=== PATIENT | male | born 1945 | race Caucasian/White ===

== ENCOUNTER → 2016-12-16 | Outpatient (CLI) | payer MEDICARE, OTHER ==
[~2016-12-16] MED LIST: ALDACTONE25 MG PO; ASPIRIN LO-DOSE81 MG PO; AVAPRO150 MG PO; COMPAZINE10 MG PO; FEOSOL325 MG PO; FOLIC ACID 40400 MCG PO; LASIX20 MG PO; LIPITOR40 MG PO; LOPRESSOR25 MG PO; LYSINE1000 MG PO; TIMOPTIC 0.5%15 ML OPHTH; TYLENOL EXTRA500 MG PO
== END | disposition disaster alternative care site (69) ==
LOC: GRAD 11:34
DX: C65.1 Malignant neoplasm of right renal pelvis (principal); N17.9 Acute kidney failure, unspecified; D64.81 Anemia due to antineoplastic chemotherapy; D70.1 Agranulocytosis secondary to cancer chemotherapy; Q61.02 Congenital multiple renal cysts; E27.8 Other specified disorders of adrenal gland; I51.7 Cardiomegaly; R91.8 Other nonspecific abnormal finding of lung field
CPT/HCPCS: Q9967

== ENCOUNTER → 2017-02-21 | Outpatient (CLI) | payer MEDICARE, OTHER | END | disposition disaster alternative care site (69) | LOC: GOPD 02-16 | DX: C65.1 Malignant neoplasm of right renal pelvis (principal); N17.9 Acute kidney failure, unspecified; D70.1 Agranulocytosis secondary to cancer chemotherapy; D64.81 Anemia due to antineoplastic chemotherapy; J90 Pleural effusion, not elsewhere classified; E27.8 Other specified disorders of adrenal gland; M89.9 Disorder of bone, unspecified; R91.8 Other nonspecific abnormal finding of lung field | CPT/HCPCS: J2001; J7030; Q9967 ==

== ENCOUNTER 2017-03-19 09:17 | Inpatient (IN) | payer MEDICARE, OTHER ==
[~2017-03-19] VITALS: Ht 180.3 cm; Wt 78.2 kg
--- NOTE | ~2017-03-19 | CON ---
PATIENT'S NAME: ANTONIO ROJO [facility] AGE: 71 Y [address] ROOM: [id number] [place], [place] [address] [place] [facility]: 03/19/2017 Consultation DISCHARGE DATE: FAMILY PHYSICIAN: Mahendra Mora MD ATTENDING PHYSICIAN: Carlin Stanford REFERRING PHYSICIAN: Romario Zuniga MD REASON FOR CONSULTATION: Ventricular tachycardia. HISTORY OF PRESENT ILLNESS: This is a 71-year-old gentleman with a history of coronary artery disease and CABG as well as sudden cardiac in 1991. He was post ICD implantation, and has four generator exchanges. He had problems with one of the ICD leads, so the ICD was shut off. He does see Dr. Olsen, and states that because he has not had any shock therapy, they were going to wait to do any kind of replacement of his leads on his ICD. He has not had any problems with exertional chest pain unless he exerts fairly heavily. He denies shortness of breath, orthopnea, or PND. He did have some problems with edema, but he was placed on a diuretic and it has since subsided. He has not followed up with Dr. Olsen for a little while as he was diagnosed with renal carcinoma with metastases. He does have a spot on his liver, but told that the cancer had been fairly stable with his chemo. He follows along with Dr. Salinas. The patient reports that approximately two years ago, he was told that his EF was around 50%. Mr. Rojo is now admitted with complaints of abdominal discomfort in the inguinal area. He had been moving a refrigerator and did a lot of straining, and he noticed that his previous inguinal hernia had gotten larger. He went to the Emergency Room for evaluation, and the CT revealed partial obstruction, but they were able to reduce it, and he went home. He re-presented to the hospital with complaints of left groin and abdominal pain with nausea and unreducible inguinal hernia. Therefore, he was taken to surgery urgently for a hernia repair and a partial colon resection. ALLERGIES: TO TETANUS VACCINES AND TOXOID. HOME MEDICATIONS: 1. Aspirin 81 mg daily. 2. Atorvastatin 40 mg daily. 3. Ferrous sulfate 325 mg daily. 4. Folic acid 400 mcg daily. 5. Lasix 20 mg b.i.d. 6. Lysine 1000 mg p.o. every day. 7. Metoprolol tartrate 25 mg tablets, he takes two 25s in the morning. PATIENT'S NAME: ANTONIO ROJO [facility] AGE: 71 Y [address] ROOM: [id number] [place], [place] [address] [place] [facility] [place]: 03/19/2017 Consultation DISCHARGE DATE: FAMILY PHYSICIAN: Mahendra Mora MD ATTENDING PHYSICIAN: Carlin Stanford 8. Compazine 10 mg every six to eight hours. 9. Aldactone 25 mg b.i.d. 10. Timoptic 0.5% one drop ophthalmic every day. REVIEW OF SYSTEMS: HEAD: No history of headache. EYES: He wears corrective lenses. He denies vision changes. NOSE: No epistaxis or rhinorrhea. MOUTH: No gingival bleeding. THROAT: He denies sore throat, hoarseness, or difficulty swallowing. PULMONARY: No cough or hemoptysis. No orthopnea or PND. GASTROINTESTINAL: Per HPI. GENITOURINARY: Negative for urinary frequency. He does have renal cell carcinoma. He has nocturia at times. MUSCULOSKELETAL: No complaints of arthralgias or myalgias. NEUROLOGIC: No neuropathy. ENDOCRINE: No history of diabetes mellitus. No hyper or hypothyroidism. PHYSICAL EXAMINATION: VITAL SIGNS: His blood pressure is 111/62 to 129/58, heart rate is 62, temperature is 98.2, and O2 saturations are 94% on room air. His weight is 78.2 kg and height is 5 feet 11 inches. GENERAL: He is alert and oriented. He answers questions appropriately. His symmetrical facial expressions were noted. RESPIRATORY: Lung sounds are clear anteriorly and posteriorly. CARDIOVASCULAR: Regular with a normal S1 and S2. ABDOMEN: Soft. Bowel sounds are present. JVD is flat. No carotid bruits were noted. EXTREMITIES: Showed no peripheral edema now. LABORATORY DATA: BUN is 36, creatinine is 1.2, sodium is 141, and potassium is 4.4. Hemoglobin was 10.3, white count was 7.1, and ESR was 89. ASSESSMENT AND PLAN: Ventricular tachycardia. I did review the rhythms noted on telemetry. It certainly could be a slow ventricular tachycardia versus possible paced rhythm, although I am unable to see any pacemaker spikes. I will re-check his labs including magnesium and replace as necessary. The assessment and plan, history of present illness, and physical exam are per Dr. Zuniga. We would like to thank Dr. Nhung To for allowing us to participate in this patient's care. PATIENT'S NAME: ANTONIO ROJO [facility] AGE: 71 Y [address] ROOM: [place] [address] [place] [facility] [place]: 03/19/2017 Consultation DISCHARGE DATE: FAMILY PHYSICIAN: Mahendra Mora MD ATTENDING PHYSICIAN: Carlin Stanford CRISTA GIBBS APRN FOR ROMARIO ZUNIGA MD TGP/modl /[id number] d: 03/21/17 0006 t: 03/31/17 0903, CONSULTATION REPORT
--- NOTE | ~2017-03-19 | DS ---
PATIENT'S NAME: ANTONIO ROJO [facility] AGE: 71 Y [address] ROOM: [address] [place], [place] [address] [place] [facility] [place]: 03/19/2017 Discharge Summary DISCHARGE DATE: 03/22/2017 FAMILY PHYSICIAN: Mahendra Mora MD ATTENDING PHYSICIAN: Carlin Stanford DIAGNOSIS: Strangulated left inguinal hernia. PROCEDURE PERFORMED: Left inguinal hernia repair with biologic mesh with small-bowel resection. SUMMARY: Mr. Rojo is a 71-year-old gentleman, who was admitted to [facility] on March 19, 2017, after he presented with left groin pain. The patient stated that he had moved a refrigerator a couple of days prior to admission. With this, he did a lot of straining and then the day prior to admission, noticed that his inguinal hernia had gotten much larger in size. He had never had any problems with the hernia prior. Due to increased size and discomfort, the patient presented to the emergency room on March 18. He had a CT scan that revealed evidence of a partial obstruction. However, it was felt that this hernia was able to be partially reduced. The patient apparently had less symptoms and was able to be discharged home and re- presented again on March 19 with increasing discomfort in the left groin and abdomen with nausea. His hernia was not able to be reduced. The patient was evaluated by Dr. Stanford and was diagnosed with an incarcerated left inguinal hernia. He recommended proceeding to the operating room for repair of the hernia. Risks, benefits, and alternatives were discussed. The patient proceeded to the operating room on March 19, where he was found to have ischemic small bowel within the hernia. The small bowel was resected. The hernia was then repaired with the suture repair with the conjoint tendon being brought down to the inguinal ligament. The second layer of silk suture was also used. There was concern due to his recent chemotherapy the risk for recurrence and with minimal contamination, an AlloDerm patch was placed on the floor of the canal. Please see Dr. Stanford's procedure note for more specifics. Postoperatively, urine output was monitored closely. Incentive spirometer was ordered for pulmonary toiletry. Telemetry was ordered. He was kept n.p.o., Lovenox was ordered for DVT prophylaxis. The patient receive Mefoxin preoperatively and was continued postoperatively for 18 hours. IV acetaminophen and morphine were ordered for pain control along with Dufur. On postop day #1, the patient was doing okay with minimal pain. He was started on clear liquid diet, and IV acetaminophen was switched to oral. Cardiology was consulted due to V-tach. On postop day #2, the patient was passing flatus, had minimal pain, no nausea or vomiting. He was advanced to full liquids and advanced as tolerated. On postop day #3, he was doing well, tolerating p.o. intake, and arrangements were made for the patient to discharge home. PATIENT'S NAME: ANTONIO ROJO [facility] AGE: 71 Y [address] ROOM: [place] [address] [place] [facility] [place]: 03/19/2017 Discharge Summary DISCHARGE DATE: 03/22/2017 FAMILY PHYSICIAN: Mahendra Mora MD ATTENDING PHYSICIAN: Carlin Stanford DISCHARGE INSTRUCTIONS: Include diet as tolerated. No heavy lifting. He will follow up with Dr. Stanford in 1-2 weeks. DISCHARGE MEDICATIONS: Include resuming home medicine of: 1. Lasix 20 mg p.o. daily. 2. Lopressor 50 mg p.o. daily. 3. Aldactone 25 mg p.o. twice daily. 4. Timoptic 1 drop ophthalmic daily. 5. Lipitor 40 mg p.o. daily. 6. Aspirin 81 mg p.o. daily. 7. Folic acid 800 mcg p.o. daily. 8. Lysine 1000 mg p.o. daily. 9. Compazine 10 mg p.o. q.6-8 hours p.r.n. nausea. 10. Feosol 325 mg p.o. daily. 11. Tylenol for pain. For specifics on day-to-day care, please refer to the hospital chart. ANGÉLICA CANADA PA-C FOR MD NUNU PARKS/dana /[id number] d: 03/28/17 0342 t: 04/06/17 1944, DISCHARGE SUMMARY
--- NOTE | ~2017-03-19 | OR ---
PATIENT'S NAME: ANTONIO ROJO [facility] AGE: 71 Y [address] ROOM: [place] [id number] [place]: [facility] [place] DATE: 03/19/2017 OR/Procedure Report DISCHARGE DATE: FAMILY PHYSICIAN: Mahendra Mora MD ATTENDING PHYSICIAN: Carlin Stanford SURGEON: Carlin Stanford MD CONCRETE HOPPER OPERATOR: DATE OF PROCEDURE: 03/19/2017 PREOPERATIVE DIAGNOSIS: Incarcerated left inguinal hernia. POSTOPERATIVE DIAGNOSES: 1. Incarcerated left inguinal hernia. 2. Ischemic small bowel. PROCEDURE: 1. Left inguinal hernia repair with biologic mesh. 2. Small bowel resection. FINDINGS: The patient had an area of bowel that was ischemic that was both a direct and indirect component. ESTIMATED BLOOD LOSS: 75 mL. COMPLICATIONS: None. INDICATIONS: The patient is a 71-year-old male who presented with a bulge in his left groin and this was tender and tight with evidence of obstruction. We discussed potential findings with the patient hernia repair as well as potential for small bowel resection. He understood the risks and elected to proceed. DESCRIPTION OF PROCEDURE: The patient was taken to the operating room, was placed supine, given IV sedation, and subsequently intubated. His abdomen and groin were prepped with ChloraPrep and sterilely draped. An incision was created overlying the inguinal canal and carried through the subcutaneous tissues and Dickson's fascia using electrocautery. The aponeurosis external oblique was identified and this was incised sharply through the external ring. The hernia sac was visible. This was a very tense tight area and it was quite large. This was a very thickened chronic hernia sac. We opened the sac, there was dark fluid present, the bowel was examined, and it did appear to be ischemic. We were unable to bring more bowel through the defect or advance or this was incarcerated and strangulated. This appeared to be extending through a direct defect. We opened the size of this defect using electrocautery. We were able to deliver the bowel through the incision. We examined the bowel PATIENT'S NAME: ANTONIO ROJO [facility] AGE: 71 Y [address] ROOM: [address] [address] LOCATION: [facility] [place] DATE: 03/19/2017 OR/Procedure Report DISCHARGE DATE: FAMILY PHYSICIAN: Mahendra Mora MD ATTENDING PHYSICIAN: Carlin Stanford for sometime. The majority of this appeared to be vascularized; however, there was a very small area that did not improve; and because of this, we elected to perform a segmental small bowel resection, proximal and distal sites were selected, mesenteric windows were created. The bowel mesentery was divided between clamps and tied with 2-0 silk suture. REN stapler was placed across both the proximal and distal ends with separate staple loads, these were fired, the portion of small bowel was removed and was passed off the table as specimen. The 2 ends of the bowel were then brought together in a [id number] fashion. Enterotomies were created and REN stapler was inserted and fired creating a common lumen. A TA stapler was placed across the enterotomies to close these. The bowel was inspected and it was allowed to fall back into the abdominal cavity. We examined the rest of the cord and there was a moderate-sized indirect defect as well. The hernia sac was dissected around circumferentially and this was reduced. Between the 2 defects, these were quite large. The fascial edges were defined. We began with a suture repair, conjoined tendon was brought down to the inguinal ligament using interrupted silk suture. A second layer of interrupted silk suture was also used. This effectively closed the defects; however, with his need for chemotherapy in the near future and the size of the defects, I was concerned about recurrence. There was really minimal contamination, but again with his likely need for chemotherapy and increased risk of infection with the bowel resection, we decided to reinforce this with an AlloDerm patch, this was placed on the floor of the canal, secured to the inguinal ligament using 2-0 Vicryl suture. This was secured anteriorly and medially to the conjoined tendon using 3-0 Vicryl sutures. The tail of the mesh were loosely approximated around the cord. The operative field was inspected and it appeared hemostatic. The aponeurosis external oblique was reapproximated using 3-0 Vicryl suture and closure of Dickson's fascia with 3-0 Vicryl suture and skin closed with 4-0 Monocryl suture. Steri-Strips and sterile dressings were placed. The local anesthetic was infiltrated and the patient was extubated and sent to recovery in good condition. CARLIN J MD NHAN STANFORD/dana /[id number] d: 03/19/17 2328 t: 03/23/17 1739, OPERATIVE SUMMARY
--- NOTE | ~2017-03-19 | HP ---
PATIENT'S NAME: ANTONIO ROJO [facility] AGE: 71 Y [address] ROOM: [place] [address] [place] [facility] [place]: 03/19/2017 History & Physical DISCHARGE DATE: FAMILY PHYSICIAN: Mahendra Mora MD ATTENDING PHYSICIAN: Carlin Stanford CORRECTED COPY / Acct no / 03-21-17/ kld DATE OF SERVICE: CHIEF COMPLAINT: Left groin pain. HISTORY OF PRESENT ILLNESS: The patient is a 71-year-old male, who said he had moved a refrigerator a couple days ago. Did a lot of straining, then yesterday he had noticed throughout the day that his inguinal hernia had gotten much larger. He had known about this hernia for several years but never had any problems with this. Because of it getting larger and discomfort, he came to the emergency room last night where he was evaluated. He had a CT scan that revealed evidence of partial obstruction; however, it was felt that this hernia was able to be partially reduced. The patient apparently had less symptoms and was able to be discharged home and represented again today with increasing discomfort in his left groin and abdomen with nausea and his hernia was found to be unable to be reduced. The patient does have a history of previous right inguinal hernia. He also has stage 4 kidney disease, had been on chemotherapy. He has not been on chemo for nearly one month. He has coronary artery disease, has had previous cardiac bypass surgery. He says his last ejection fraction was approximately 2 years ago, was thought to be 50%. CURRENT MEDICATIONS: Include, 1. Metoprolol. 2. Lipitor. 3. Furosemide. 4. Spironolactone. 5. Aspirin. 6. Folic acid. 7. Iron. 8. Lysine eyedrops. PAST SURGICAL HISTORY: Coronary bypass pacer defibrillator x2, right inguinal hernia, eye surgery x3. CURRENT ILLNESSES: Coronary artery disease, stage 4 kidney disease. PATIENT'S NAME: ANTONIO ROJO [facility] AGE: 71 Y [address] ROOM: [place] [address] [place] [facility] [place]: 03/19/2017 History & Physical DISCHARGE DATE: FAMILY PHYSICIAN: Mahendra Mora MD ATTENDING PHYSICIAN: Carlin Stanford REVIEW OF SYSTEMS: He denies headache or vision changes. Denies shortness of breath. No chest pain. No melena. No hematochezia. No hematuria or dysuria. His last bowel movement was yesterday and he does not feel constipated. He denies any neurologic disorder. No diabetes, hyper or hypothyroidism. PHYSICAL EXAMINATION: GENERAL: Pleasant, cooperative 71-year-old male in no acute distress. HEENT: Head is normocephalic. Eyes are anicteric. NECK: Without lymphadenopathy. HEART: Regular rate and rhythm. LUNGS: Clear to auscultation bilaterally. ABDOMEN: Soft. There is mild distention. Bowel sounds are positive. He has a very dense scar overlying the transverse incision where he had his initial pacer. : He has a right inguinal scar that is well healed. No evidence of right inguinal hernia. There is an incarcerated left inguinal hernia. No overlying skin redness, but again this is not reducible. He has an uncircumcised phallus. EXTREMITIES: Warm. No edema. NEUROLOGICALLY: Gross motor is intact. ASSESSMENT: Incarcerated left inguinal hernia. PLAN: Discussed the findings. I feel the patient does have an incarcerated hernia causing obstructive type symptoms and I think this needs repair. I did discuss with him the possibility of this being more of a chronic hernia and other etiologies of his obstruction; however, this looks to be most probable source. We discussed repair with him. Risks of repair which include bleeding, infection, need for bowel resection, use of mesh, complications with bowel resection. We discussed neural and vascular injury, need for repeat operations or even intraabdominal operations. He understands the risks and would like to proceed. We will provide IV antibiotics and proceed to the operating room. MD NHAN PARKS/dana PATIENT'S NAME: ANTONIO ROJO [facility] AGE: 71 Y [address] ROOM: [place] [address] LOCATION: [facility] ADMIT DATE: 03/19/2017 History & Physical DISCHARGE DATE: FAMILY PHYSICIAN: Mahendra Mora MD ATTENDING PHYSICIAN: Carlin Stanford /[id number] CORRECTED COPY / Acct no / 7-11-/ kld D: 815 T: 742 HISTORY & PHYSICAL
--- NOTE | ~2017-03-19 | ER ---
PATIENT'S NAME: [facility] AGE: 71 Y [address] ROOM: [place] [address] [place] [facility] [place]: 03/19/2017 ER/Outpatient Report DISCHARGE DATE: FAMILY PHYSICIAN: Mahendra Mora MD ATTENDING PHYSICIAN: Carlin Stanford Time of Arrival: 0917 hours. Time of Evaluation: 0917 hours. CHIEF COMPLAINT: Abdominal pain. HISTORY OF PRESENT ILLNESS: The patient is a 71-year-old male who presents to the emergency department today with chief complaint of abdominal pain. The patient was seen the night before with some abdominal pain, was diagnosed with a hernia, and was feeling good and sent home. The patient returns after having continued abdominal pain, nausea, and vomiting, with vomiting x4 since 6:00 a.m. this morning. Denies any fevers or chills. No diarrhea or constipation. He is unsure if he is passing gas. No urinary frequency, urgency, or painful urination. No blood in the stool. No dark tarry stools. PAST MEDICAL HISTORY: Coronary artery disease, hypertension, dyslipidemia, kidney cancer with METS. PAST SURGICAL HISTORY: Pacemaker AICD CABG x2, eye surgeries, hernia repair. SOCIAL HISTORY: The patient denies any tobacco, alcohol, or illicit drug use. ALLERGIES: TETANUS. MEDICATIONS: Please see list. REVIEW OF SYSTEMS: All systems are reviewed by myself and negative with the exception of those discussed in HPI and past medical history. PHYSICAL EXAMINATION: VITAL SIGNS: Weight 76.9 kg, blood pressure 160/72, pulse 64, respiratory rate 16, temperature 97.4, oxygen saturation 97% on room air. GENERAL: The patient is a 71-year-old male, appears stated age, in mild acute PATIENT'S NAME: [facility] AGE: 71 Y [address] ROOM: [place] [address] [place] [facility] [place]: 03/19/2017 ER/Outpatient Report DISCHARGE DATE: FAMILY PHYSICIAN: Mahendra Mora MD ATTENDING PHYSICIAN: Carlin Stanford distress. HEENT: Normocephalic, atraumatic. Pupils are equal, round, and reactive to light. Mucous membranes moist. NECK: Supple. There is no nuchal rigidity. CARDIOVASCULAR: Regular rate and rhythm. No murmurs, rubs, or gallops. LUNGS: Clear to auscultation bilaterally. No wheezes, rales, or rhonchi. ABDOMEN: Soft. Mild diffuse tenderness to palpation. He does have a left inguinal hernia that is nonreducible. It is slightly tender. SKIN: Warm and dry. There are no rashes or lesions noted. LABORATORY DATA AND X-RAYS: Labs and x-rays are reviewed from previous. CBC is unremarkable except for platelet of 96. Coags are normal. CMP is unremarkable except for BUN 47, alkaline phosphatase of 254, AST 93, ALT is 86. Amylase and lipase normal. CRP is normal. ProBNP is 1435. CT scan of the abdomen and pelvis without IV contrast was obtained. I have reviewed the Radiology report, does show left inguinal hernia containing small bowel loops proximal and mild dilation distally with early or intermittent small bowel obstruction. There is a right renal lesion which is unchanged. Laboratory analysis today. CBC is unremarkable except for a platelet of 102. CMP is unremarkable except for a BUN 42, alkaline phosphatase 259, AST is 53, ALT is 71. IMPRESSION: 1. Incarcerated left inguinal hernia with small-bowel obstruction. 2. Renal cancer with METS. 3. Elevated liver enzymes. 4. Initial visit. EMERGENCY DEPARTMENT COURSE: The patient was brought back to the examination room. Seen and evaluated by myself. IV was established. Laboratory analysis and imaging are obtained as described above. The patient is given 0.5 mg of Dilaudid IV as well as 4 mg of Zofran IV. He is given a liter of normal saline. I have reviewed the patient's records. I have discussed the case with Dr. Stanford, who is on-call for General Surgery and he has seen and evaluated the patient down here in the emergency department. The patient will proceed to the operating room for treatment of the small bowel obstruction due to the left inguinal hernia. DISPOSITION: The patient is transferred to the operating room in stable condition. CARMENZA NORRIS DO PATIENT'S NAME: JAVIANTONIO Sahu [facility] AGE: 71 Y [address] ROOM: [id number] [place], [place] [address] [place] [facility] [place] DATE: 03/19/2017 ER/Outpatient Report DISCHARGE DATE: FAMILY PHYSICIAN: Mahendra Mora MD ATTENDING PHYSICIAN: Carlin Stanford/dana /[id number] CC: Robert Salinas MD d: 03/19/17 1913 t: 03/22/17 0652, OUTPATIENT REPORT
[~2017-03-19 09:17] MED LIST changes: -TYLENOL EXTRA500 MG PO
[2017-03-19 10:02] LABS: BASOPHIL % 0.2 %; EOSINOPHIL # 0.2 K/uL (0.0-0.5); EOSINOPHIL % 1.8 %; HEMATOCRIT 38.7 % (37.0-53.0); IMMATURE GRANULOCYTE % 0.3 %; LYMPHOCYTE % 9.6 %; MCH 32.4 pg (27.0-34.0); MCHC 33.6 gm/dL (32.0-36.5); MCV 96.5 fl (83.0-98.0); MONOCYTE # 0.6 K/uL (0.0-1.0); MONOCYTE % 5.3 %; MPV 9.2 fl (9.4-12.4); NEUTROPHIL # (ANC) 8.8 K/uL (1.4-9.0); NEUTROPHIL % 82.8 %; NRBC % 0 /100WBC (0-0.00); PLATELET COUNT 102 K/uL (150-450); RBC 4.01 M/uL (3.50-5.50); WBC 10.6 K/uL (4.0-11.0)
[2017-03-19 10:20] LABS: ALBUMIN 4.1 gm/dL (3.5-5.0); ANION GAP 15.3 (10.0-19.0); CALCIUM 9.8 mg/dL (8.5-10.5); CREATININE 1.3 mg/dL (0.6-1.3); POTASSIUM 4.3 mMol/L (3.7-5.1)
[2017-03-19 10:25] LABS: TOTAL BILIRUBIN 0.8 mg/dL (0.0-1.5)
[2017-03-20 04:55] LABS: BASOPHIL % 0.3 %; EOSINOPHIL # 0.2 K/uL (0.0-0.5); EOSINOPHIL % 2.4 %; HEMATOCRIT 31.1 % (37.0-53.0); HEMOGLOBIN 10.3 g/dL (11.0-16.0); IMMATURE GRANULOCYTE % 0.1 %; LYMPHOCYTE % 13.7 %; MCH 32.6 pg (27.0-34.0); MCHC 33.1 gm/dL (32.0-36.5); MCV 98.4 fl (83.0-98.0); MONOCYTE # 0.6 K/uL (0.0-1.0); MONOCYTE % 8.9 %; MPV 9.8 fl (9.4-12.4); NEUTROPHIL # (ANC) 5.2 K/uL (1.4-9.0); NEUTROPHIL % 74.6 %; NRBC % 0 /100WBC (0-0.00); PLATELET COUNT 96 K/uL (150-450); RBC 3.16 M/uL (3.50-5.50); RDW-CV 13.2 % (11.9-14.6)
[2017-03-20 05:08] LABS: ANION GAP 9.4 (10.0-19.0); CALCIUM 8.4 mg/dL (8.5-10.5); CREATININE 1.2 mg/dL (0.6-1.3); POTASSIUM 4.4 mMol/L (3.7-5.1)
[2017-03-20 13:40] LABS: MAGNESIUM 1.6 mg/dL (1.8-2.6)
[2017-03-20 20:29] LABS: ALBUMIN 2.9 gm/dL (3.5-5.0); CALCIUM 8.3 mg/dL (8.5-10.5); CREATININE 1.2 mg/dL (0.6-1.3)
[2017-03-22] MEDS ORDERED: TYLENOL EXTRA500 MG PO (13:45)
== END 2017-03-22 14:40 | disposition disaster alternative care site (69) | DRG 330 ==
LOC: GMED 09:17 → GMSU 10:41
PROVIDERS: Emergency Medicine; Internal Medicine Interventional Cardiology; Nurse Practitioner Acute Care; ADMIT Surgery
PROC: 0YU60JZ Supplement Left Inguinal Region with Synthetic Substitute, Open Approach (ICD-10-PCS; principal; 2017-03-19)
PROC: 0DB80ZZ Excision of Small Intestine, Open Approach (ICD-10-PCS; principal; 2017-03-19)
DX: K40.30 Unilateral inguinal hernia, with obstruction, without gangrene, not specified as recurrent (principal); K55.9 Vascular disorder of intestine, unspecified; I47.2 Ventricular tachycardia; C79.9 Secondary malignant neoplasm of unspecified site; N18.4 Chronic kidney disease, stage 4 (severe); Z86.74 Personal history of sudden cardiac arrest; C64.1 Malignant neoplasm of right kidney, except renal pelvis; I25.10 Atherosclerotic heart disease of native coronary artery without angina pectoris; Z95.1 Presence of aortocoronary bypass graft; Z95.810 Presence of automatic (implantable) cardiac defibrillator; Z92.21 Personal history of antineoplastic chemotherapy; Z79.82 Long term (current) use of aspirin; Z79.899 Other long term (current) drug therapy
CPT/HCPCS: A9270; J0131; J0694; J1170; J1650; J2270; J2405; J3475; J7030; J7040; J7120; Q4116

== ENCOUNTER → 2017-04-14 | Outpatient (CLI) | payer MEDICARE, OTHER ==
[~2017-04-14] MED LIST changes: +TYLENOL EXTRA500 MG PO
[2017-04-14 10:28] LABS: CREATININE 1.3 mg/dL (0.6-1.3)
== END | disposition disaster alternative care site (69) ==
LOC: GRAD 09:30
PROVIDERS: Internal Medicine Hematology & Oncology
DX: C65.1 Malignant neoplasm of right renal pelvis (principal); N17.9 Acute kidney failure, unspecified; D64.81 Anemia due to antineoplastic chemotherapy; D70.1 Agranulocytosis secondary to cancer chemotherapy; C78.00 Secondary malignant neoplasm of unspecified lung; J90 Pleural effusion, not elsewhere classified; K44.9 Diaphragmatic hernia without obstruction or gangrene; R16.1 Splenomegaly, not elsewhere classified; Z98.890 Other specified postprocedural states; Q61.02 Congenital multiple renal cysts
CPT/HCPCS: Q9967

== ENCOUNTER → 2017-05-18 | Outpatient (CLI) | payer MEDICARE, OTHER | END | disposition disaster alternative care site (69) | LOC: GRAD 10:42 | DX: C65.1 Malignant neoplasm of right renal pelvis (principal); C79.51 Secondary malignant neoplasm of bone; N17.9 Acute kidney failure, unspecified; D64.81 Anemia due to antineoplastic chemotherapy; D70.1 Agranulocytosis secondary to cancer chemotherapy | CPT/HCPCS: A9503 ==